=== PATIENT | male | born 1955 | race Caucasian/White ===

== ENCOUNTER → 2018-04-05 | Outpatient (CLI) | payer OTHER | LOC: EEVIPCON 11:17 → FIMAGING 11:17 | PROVIDERS: ATTEND Internal Medicine | DX: N28.81 Hypertrophy of kidney (principal); N13.30 Unspecified hydronephrosis; I10 Essential (primary) hypertension; Z90.5 Acquired absence of kidney; Z86.018 Personal history of other benign neoplasm ==

== ENCOUNTER → 2018-05-03 | Outpatient (CLI) | payer OTHER ==
[~2018-05-03] MED LIST: IOPAMIDOL (ISOVUE-300) 200 ML BTL ONE
== END ==
LOC: FIMAGING 14:47
PROVIDERS: ATTEND Internal Medicine
DX: I15.1 Hypertension secondary to other renal disorders (principal); Z90.5 Acquired absence of kidney
CPT/HCPCS: 82565-PO; Q9967

== ENCOUNTER → 2018-05-16 | Outpatient (CLI) | payer OTHER ==
[~2018-05-16] MED LIST changes: +FUROSEMIDE 40 MG/4 ML VIAL ONE; -IOPAMIDOL (ISOVUE-300) 200 ML BTL ONE
== END ==
LOC: FIMAGING 11:21
PROVIDERS: ATTEND Urology
DX: N28.89 Other specified disorders of kidney and ureter (principal)
CPT/HCPCS: A9562; J1940